=== PATIENT | female | born 1950 | race Caucasian/White ===

== ENCOUNTER → 2017-07-09 | Outpatient (CLI) | payer BC | END | disposition home or self-care (01) | LOC: CFH 15:33 | PROVIDERS: ATTEND Nurse Practitioner Family | DX: M19.041 Primary osteoarthritis, right hand (principal); M19.042 Primary osteoarthritis, left hand ==

== ENCOUNTER 2018-11-20 08:24 | Outpatient (CLI) | payer BC | END 2018-11-20 23:59 | disposition home or self-care (01) | LOC: CFH 08:24 | PROVIDERS: ATTEND Physician Assistant | DX: R05 Cough (principal); I10 Essential (primary) hypertension; E03.9 Hypothyroidism, unspecified; E78.2 Mixed hyperlipidemia | CPT/HCPCS: 71046 ==